=== PATIENT | female | born 1960 | race Caucasian/White ===

== ENCOUNTER 2025-05-05 11:44 | Emergency (ER) | payer MEDICARE, OTHER ==
[~2025-05-05] VITALS: Ht 162.6 cm; Wt 102.1 kg
[2025-05-05 11:53] VITALS: PULSE 74; RESP 18; TEMP 98.7
[2025-05-05 14:56] VITALS: BP 137/84; PULSE 84; RESP 18; TEMP 98.6; O2SAT 98
== END 2025-05-05 14:38 | disposition home or self-care (01) ==
LOC: ER 12:05
DX: S06.0X0A Concussion without loss of consciousness, initial encounter (principal); W18.39XA Other fall on same level, initial encounter; Y92.89 Other specified places as the place of occurrence of the external cause; E78.5 Hyperlipidemia, unspecified; Z98.84 Bariatric surgery status
CPT/HCPCS: 70450; 72125; 99284